=== PATIENT | female | born 2000 | race Caucasian/White ===

== ENCOUNTER 2018-06-24 12:48 | Outpatient (CLI) | payer OTHER ==
[~2018-06-24] VITALS: Ht 152.4 cm; Wt 61.7 kg
[2018-06-24] MEDS ORDERED: PNV11TAB PO (14:00)
[2018-06-24 14:01] VITALS: BP 124/71; PULSE 94; RESP 19; Ht 152.4 cm; Wt 61.7 kg
--- NOTE | 2018-06-24 17:58 | TRIAGE ---
OB Triage Datetime Report Generated by CPN: 06/24/2018 17:58 Datetime: 06/24/2018 16:00 Labor Evaluation Frequency: 0 Monitor Mode: External Pattern: Normal: <= 5 Contractions in 10 Minutes Resting Tone [place]: Relaxed Heart Rate FHR Baseline Rate: 135 Monitor Mode: External US FHR Baseline Changes: No Baseline Change Variability: Moderate 6-25 bpm Accelerations: 15X15 Decelerations: None Category: Category I Datetime: 06/24/2018 14:12 Assessment Type: Triage Maternal Assessment Level of Consciousness: Fully Conscious DTR's/Clonus: DTRs 2+; No Clonus Headache: Denies Blurred Vision: No Respiratory Effort: Unlabored; Regular Rhythm; Equal Expansion Breath Sounds, Left: Clear and Equal Breath Sounds, Right: Clear and Equal Nausea/Vomiting: Denies RUQ Epigastric Pain: Denies Lower Extremities Edema: None Degree: None Upper Extremities Edema: None Degree: None Facial Edema: None Fall Risk Assessment History of Falling: (0) No Secondary Diagnosis: (0) No Ambulatory Aid: (0) Bedrest/Nurse Assist IV Therapy: (0) No Gait: (0) Normal/Bedrest/Immobile Mental Status: (0) Oriented to Own Ability Fall Score: 0 Fall Risk Score Definition: No Risk: No action required Datetime: 06/24/2018 14:11 Time of Arrival: 06/24/2018 12:40 EGA: 27.2 Arrived By: Ambulatory Arrived From: Home Chief Complaint: DFM Movement: Decreased Contractions: Denies/Absent Rupture of Membranes: Denies Vaginal Bleeding: None Vaginal Discharge: Denies Recent Sexual Intercouse: Denies Abdominal Trauma: Not Applicable Patient Complaints: Other Time Provider Notified: 06/24/2018 15:25 Provider Notified: DR MCCARTY Initial Plan: NST BPP AND EFW Datetime: 06/24/2018 14:10 Labor Evaluation Frequency: 0 Monitor Mode: External Pattern: Normal: <= 5 Contractions in 10 Minutes Resting Tone [place]: Relaxed Heart Rate FHR Baseline Rate: 145 Monitor Mode: External US FHR Baseline Changes: No Baseline Change Variability: Moderate 6-25 bpm Accelerations: 15X15 Decelerations: None Category: Category I
--- NOTE | 2018-06-24 19:30 | PN ---
Triage Information Date/Time June 24, 2018 Reason for visit: DFM Weeks of Gestation 27 weeks and 2 days /Para 2 para 0 Diabetes: none Hypertention: none Additional information 17-year-old G2, P0 with IUP at 27 weeks and 2 days with decreased movement. Patient denies any leaking of fluid vaginal bleeding or contractions. Objective Vital Signs Date Temp Pulse Resp B/P (MAP) Pulse Ox O2 O2 Flow FiO2 Time Delivery Rate 06/24/18 99.0 94 19 124/71 Room Air 14:01 (88) Heart Rate: 130's Heart Rate Comments Appropriate for gestational age Contractions: None Exam Appearance: Alert and oriented x4 does not appear to be in any acute distress Abdomen: Soft, gravid, fundal height consider gestational age NST: Category 1 BPP: 09/23 Results/Medications Imaging Results PROCEDURE: US OB biophysical profile. CLINICAL INDICATION: decreased movements, TECHNIQUE: Multiple sonographic images of the pelvis were obtained. The images were reviewed on a PACS workstation. COMPARISON: No prior studies are available for comparison. FINDINGS: There is a single live intrauterine gestation. Cardiac activity is present with 159 beats per minute. There is a breech presentation. The placenta is anterior. There is no evidence of placental abruption. TOBIAS = 13.5 cm. Biophysical profile: movement 2/2 tone 2/2. breathing 2/2 TOBIAS 2/2 Total 09/23 RPTAT: AA . IMPRESSION: Normal biophysical profile. . PROCEDURE: US OB. CLINICAL INDICATION: Size and dates , DFM TECHNIQUE: Multiple sonographic images of the pelvis and gravid uterus were obtained. The images were reviewed on a PACS workstation. COMPARISON: No prior studies are available for comparison. FINDINGS: Gestation: Single live intrauterine gestation. Cardiac activity: 159 beats per minute. Presentation: breech Placenta: Location: Anterior. Appearance: No previa or abruption. Measurements: BPD = 6.4 cm, 25 weeks and 6 days HC = 24.6 cm, 26 weeks and 5 days AC = 24 cm, 28 weeks and 2 days FL = 5.4 cm, 28 weeks and 3 days Gestational Age: AUA estimated gestational age: 27 weeks 2 days LMP estimated gestational age: 27 weeks 2 days AUA estimated date of delivery: 09/21/18 The EFW = 1162 g, 67.8%ile based on LMP age. RPTAT: AA IMPRESSION: Single live intrauterine gestation of 27 weeks 2 days by ultrasound criteria. .Dhaval Banerjee MD, MD Date Time Electronically viewed and signed by .Dhaval Banerjee MD, MD on 06/24/2018 14:47 .S/ CC: SABIHA MCCARTY MD [id number] Disposition: Discharge Assessment/Plan IUP at 27 weeks and 2 days Decreased movement testing reassuring DC home Follow-up with OB office in 48 hours after discharge from the hospital labor precautions kick count RON SALAZAR MD June 24, 2018 19:30
== END 2018-06-24 17:50 | disposition home or self-care (01) ==
LOC: L-D 12:48 → OBT 12:48
PROVIDERS: ATTEND Obstetrics & Gynecology
DX: O36.8120 Decreased fetal movements, second trimester, not applicable or unspecified (principal); Z3A.27 27 weeks gestation of pregnancy
CPT/HCPCS: 76815; 76818; Z7500; G0463

== ENCOUNTER 2018-08-13 13:45 | Outpatient (CLI) | payer OTHER ==
[~2018-08-13] VITALS: Ht 152.4 cm; Wt 65.3 kg
[~2018-08-13 13:45] MED LIST: PNV11TAB PO
[2018-08-13 14:34] VITALS: BP 115/64; PULSE 78; RESP 18; Ht 152.4 cm; Wt 65.3 kg
--- NOTE | 2018-08-13 15:27 | PN ---
Triage Information Date/Time 08/13/18 Reason for visit: Oligohydramnios Weeks of Gestation 34w3d /Para Diabetes: none Hypertention: none Objective Vital Signs Date Temp Pulse Resp B/P (MAP) Pulse Ox O2 O2 Flow FiO2 Time Delivery Rate 08/13/18 98.5 78 18 115/64 14:34 (81) Heart Rate: 140's Heart Rate Comments CAT I Contractions: None Results/Medications Imaging Results BPP 09/23 TOBIAS 10.8 Disposition: Discharge Assessment/Plan A IUP 34w3d oligohydramnios ( normal amniotic fluid) P discharge home , f/u with her OB DARIANA CHRISTIANSON MD Aug 13, 2018 15:27
--- NOTE | 2018-08-13 16:02 | TRIAGE ---
OB Triage Datetime Report Generated by CPN: 08/13/2018 16:02 Datetime: 08/13/2018 15:09 Stage of : OB Triage Datetime: 08/13/2018 14:30 Stage of : OB Triage Assessment Type: Triage Maternal Assessment Level of Consciousness: Keenly Alert, Responsive DTR's/Clonus: DTRs 2+; No Clonus Headache: Denies Blurred Vision: No Respiratory Effort: Unlabored; Regular Rhythm; Equal Expansion Breath Sounds, Left: Clear and Equal Breath Sounds, Right: Clear and Equal Nausea/Vomiting: Denies RUQ Epigastric Pain: Denies Facial Edema: None Temperature Route: Axillary Fall Risk Assessment History of Falling: (0) No Secondary Diagnosis: (0) No Ambulatory Aid: (0) Bedrest/Nurse Assist IV Therapy: (0) No Gait: (0) Normal/Bedrest/Immobile Mental Status: (0) Oriented to Own Ability Fall Score: 0 Fall Risk Score Definition: No Risk: No action required Labor Evaluation Frequency: 0 Monitor Mode: External Pattern: Normal: <= 5 Contractions in 10 Minutes Resting Tone [place]: Relaxed Heart Rate FHR Baseline Rate: 155 Monitor Mode: External US Variability: Moderate 6-25 bpm Accelerations: 10X10 Decelerations: None Category: Category I Pain Assessment Pain Scale: 0 Pain Presence: None/Denies Pain Type: N/A Pain Goal: 3 Pain Relief Measures: Comfort Measures Datetime: 08/13/2018 14:29 Time of Arrival: 08/13/2018 13:40 EGA: 34.3 Arrived By: Ambulatory Arrived From: Dr. Wooten Chief Complaint: referred from clinic for low chantel, denies leaking, bleeding or uc's Movement: Present Contractions: Denies/Absent Rupture of Membranes: Denies Vaginal Bleeding: None Vaginal Discharge: Denies Recent Sexual Intercouse: Denies Abdominal Trauma: Not Applicable Patient Complaints: None Time Provider Notified: 08/13/2018 15:09 Provider Notified: del[place] Initial Plan: monitor, bpp Datetime: 06/24/2018 14:12 Fall Score: 0 Fall Risk Score Definition: No Risk: No action required Datetime: 06/24/2018 14:11 EGA: 27.2
== END 2018-08-13 15:20 | disposition home or self-care (01) ==
LOC: OBT 13:45 → L-D 13:47 → OBT 15:20
PROVIDERS: ATTEND Obstetrics & Gynecology
DX: O41.03X0 Oligohydramnios, third trimester, not applicable or unspecified (principal); Z3A.34 34 weeks gestation of pregnancy
CPT/HCPCS: 76818; Z7500; G0463

== ENCOUNTER 2018-08-17 12:02 | Outpatient (CLI) | payer OTHER ==
[~2018-08-17] VITALS: Ht 152.4 cm; Wt 65.5 kg
[2018-08-17 12:22] VITALS: Ht 152.4 cm; Wt 65.5 kg
[2018-08-17 12:23] VITALS: BP 104/59; PULSE 84; RESP 18
--- NOTE | 2018-08-17 15:10 | PN ---
Triage Information Date/Time Reason for visit: Repeat TOBIAS,Hx of Low TOBIAS Weeks of Gestation 34+ /Para n/a Diabetes: none Hypertention: none Objective Vital Signs Date Temp Pulse Resp B/P (MAP) Pulse Ox O2 O2 Flow FiO2 Time Delivery Rate 08/17/18 98.2 84 18 104/59 12:23 (74) Heart Rate: 140's Contractions: None Disposition: Discharge Assessment/Plan BPP 11/25 Questions answered Follow up with provider Precautions discussed DA KEENAN M.D. Aug 17, 2018 15:10
--- NOTE | 2018-08-17 15:54 | TRIAGE ---
OB Triage Datetime Report Generated by CPN: 08/17/2018 15:54 Datetime: 08/17/2018 15:02 Stage of : OB Triage Datetime: 08/17/2018 14:25 Labor Evaluation Frequency: 0 Monitor Mode: External Pattern: Normal: <= 5 Contractions in 10 Minutes Resting Tone [place]: Relaxed Heart Rate FHR Baseline Rate: 125 Monitor Mode: External US Variability: Moderate 6-25 bpm Accelerations: 10X10 Decelerations: None Category: Category I Pain Assessment Pain Scale: 0 Pain Presence: None/Denies Pain Type: N/A Pain Goal: 3 Pain Relief Measures: Comfort Measures Datetime: 08/17/2018 13:31 Labor Evaluation Frequency: 0 Monitor Mode: External Pattern: Normal: <= 5 Contractions in 10 Minutes Resting Tone [place]: Relaxed Heart Rate FHR Baseline Rate: 125 Monitor Mode: External US Variability: Moderate 6-25 bpm Accelerations: 10X10 Decelerations: None Category: Category I Pain Assessment Pain Scale: 0 Pain Presence: None/Denies Pain Type: N/A Pain Goal: 3 Pain Relief Measures: Comfort Measures Datetime: 08/17/2018 12:28 Stage of : OB Triage Assessment Type: Triage Maternal Assessment Level of Consciousness: Keenly Alert, Responsive DTR's/Clonus: DTRs 2+; No Clonus Headache: Denies Blurred Vision: No Respiratory Effort: Unlabored; Regular Rhythm; Equal Expansion Breath Sounds, Left: Clear and Equal Breath Sounds, Right: Clear and Equal Nausea/Vomiting: Denies RUQ Epigastric Pain: Denies Facial Edema: None Temperature Route: Oral Fall Risk Assessment History of Falling: (0) No Secondary Diagnosis: (0) No Ambulatory Aid: (0) Bedrest/Nurse Assist IV Therapy: (0) No Gait: (0) Normal/Bedrest/Immobile Mental Status: (0) Oriented to Own Ability Fall Score: 0 Fall Risk Score Definition: No Risk: No action required Pain Assessment Pain Scale: 0 Pain Presence: None/Denies Pain Type: N/A Pain Goal: 0 Datetime: 08/17/2018 12:26 Time of Arrival: 08/17/2018 11:56 EGA: 35.0 Arrived By: Ambulatory Chief Complaint: NST follow-up for low TOBIAS Movement: Present Contractions: Denies/Absent Rupture of Membranes: Denies Vaginal Bleeding: None Vaginal Discharge: Denies Recent Sexual Intercouse: Denies Abdominal Trauma: Not Applicable Patient Complaints: None Time Provider Notified: 08/17/2018 15:02 Provider Notified: GHAYOORI Initial Plan: monitor, BPP Datetime: 08/13/2018 14:30 Fall Score: 0 Fall Risk Score Definition: No Risk: No action required Datetime: 08/13/2018 14:29 EGA: 34.3 Datetime: 06/24/2018 14:12 Fall Score: 0 Fall Risk Score Definition: No Risk: No action required Datetime: 06/24/2018 14:11 EGA: 27.2
== END 2018-08-17 15:12 | disposition home or self-care (01) ==
LOC: OBT 12:02 → L-D 12:06 → OBT 15:12
PROVIDERS: ATTEND Obstetrics & Gynecology
DX: O41.93X0 Disorder of amniotic fluid and membranes, unspecified, third trimester, not applicable or unspecified (principal); Z3A.34 34 weeks gestation of pregnancy
CPT/HCPCS: 76818; Z7500; G0463

== ENCOUNTER 2018-08-24 10:31 | Outpatient (CLI) | payer OTHER ==
[~2018-08-24] VITALS: Ht 149.9 cm; Wt 66.8 kg
[2018-08-24 10:42] VITALS: Ht 149.9 cm; Wt 66.8 kg
--- NOTE | 2018-08-24 12:47 | PN ---
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 Aug 24, 2018 12:47
--- NOTE | 2018-08-24 13:51 | TRIAGE ---
OB Triage Datetime Report Generated by CPN: 08/24/2018 13:51 Datetime: 08/24/2018 12:36 Stage of : OB Triage Maternal Assessment Level of Consciousness: Keenly Alert, Responsive DTR's/Clonus: DTRs 1+ Headache: Denies Breath Sounds, Left: Clear and Equal Breath Sounds, Right: Clear and Equal Nausea/Vomiting: Denies RUQ Epigastric Pain: Denies Labor Evaluation Frequency: NONE Monitor Mode: External Resting Tone [place]: Relaxed Heart Rate FHR Baseline Rate: 120 Monitor Mode: External US Variability: Moderate 6-25 bpm Accelerations: 15X15 Decelerations: None Category: Category I Pain Assessment Pain Scale: 0 Pain Presence: None/Denies Pain Type: N/A Pain Goal: 3 Vaginal Exam Membrane Status: Intact Datetime: 08/24/2018 12:00 Stage of : OB Triage Maternal Assessment Level of Consciousness: Keenly Alert, Responsive DTR's/Clonus: DTRs 1+ Headache: Denies Breath Sounds, Left: Clear and Equal Breath Sounds, Right: Clear and Equal Nausea/Vomiting: Denies RUQ Epigastric Pain: Denies Labor Evaluation Frequency: NONE Monitor Mode: External Resting Tone [place]: Relaxed Heart Rate FHR Baseline Rate: 120 Monitor Mode: External US Variability: Moderate 6-25 bpm Accelerations: 15X15 Decelerations: None Category: Category I Pain Assessment Pain Scale: 0 Pain Presence: None/Denies Pain Type: N/A Pain Goal: 3 Vaginal Exam Membrane Status: Intact Datetime: 08/24/2018 11:02 Maternal Assessment Level of Consciousness: Keenly Alert, Responsive DTR's/Clonus: DTRs 1+ Headache: Denies Blurred Vision: No Respiratory Effort: Unlabored Breath Sounds, Left: Clear and Equal Breath Sounds, Right: Clear and Equal Nausea/Vomiting: Denies RUQ Epigastric Pain: Denies Facial Edema: None Labor Evaluation Frequency: NONE Monitor Mode: External Resting Tone [place]: Relaxed Heart Rate FHR Baseline Rate: 120 Monitor Mode: External US Variability: Moderate 6-25 bpm Accelerations: 15X15 Decelerations: None Category: Category I Pain Assessment Pain Scale: 0 Pain Presence: None/Denies Pain Type: N/A Pain Goal: 3 Vaginal Exam Membrane Status: Intact Datetime: 08/24/2018 10:37 EGA: 36.4 Datetime: 08/24/2018 10:25 Time of Arrival: 08/24/2018 10:25 EGA: 36.0 Arrived By: Ambulatory Arrived From: Home Chief Complaint: PT CAME IN FOR NST AND BPP F/U FOR OLIGO Movement: Present Contractions: Denies/Absent Rupture of Membranes: Denies Vaginal Bleeding: None Vaginal Discharge: Denies Recent Sexual Intercouse: Denies Abdominal Trauma: Not Applicable Patient Complaints: Other Time Provider Notified: 08/24/2018 10:45 Provider Notified: ESHAGHIAN Initial Plan: NST AND BPP Datetime: 08/17/2018 12:28 Fall Risk Assessment Fall Score: 0 Fall Risk Score Definition: No Risk: No action required Datetime: 08/17/2018 12:26 EGA: 35.0 Datetime: 08/13/2018 14:30 Fall Risk Assessment Fall Score: 0 Fall Risk Score Definition: No Risk: No action required Datetime: 08/13/2018 14:29 EGA: 34.3 Datetime: 06/24/2018 14:12 Fall Risk Assessment Fall Score: 0 Fall Risk Score Definition: No Risk: No action required Datetime: 06/24/2018 14:11 EGA: 27.2
== END 2018-08-24 12:41 | disposition home or self-care (01) ==
LOC: OBT 10:31 → L-D 10:32 → OBT 12:41
PROVIDERS: ATTEND Obstetrics & Gynecology
DX: O62.9 Abnormality of forces of labor, unspecified (principal)
CPT/HCPCS: 76818; 84112; Z7500; G0463

== ENCOUNTER 2018-08-26 10:16 | Inpatient (IN) | payer OTHER ==
[~2018-08-26] VITALS: Ht 149.9 cm; Wt 66.7 kg
[2018-08-26 10:40] VITALS: Ht 149.9 cm; Wt 66.7 kg
[2018-08-26 10:41] VITALS: BP 110/68; PULSE 93; RESP 18
--- NOTE | 2018-08-26 14:37 | TRIAGE ---
OB Triage Datetime Report Generated by CPN: 08/26/2018 14:36 Datetime: 08/26/2018 14:25 Stage of : OB Triage Datetime: 08/26/2018 14:21 Maternal Assessment Level of Consciousness: Keenly Alert, Responsive DTR's/Clonus: DTRs 1+ Headache: Denies Blurred Vision: No Respiratory Effort: Unlabored Breath Sounds, Left: Clear and Equal Breath Sounds, Right: Clear and Equal Nausea/Vomiting: Denies RUQ Epigastric Pain: Denies Facial Edema: None Labor Evaluation Frequency: OCC Monitor Mode: External Duration (sec)2399: 40-60 Quality: Mild Pattern: Normal: <= 5 Contractions in 10 Minutes Resting Tone [place]: Relaxed Heart Rate FHR Baseline Rate: 120 Monitor Mode: External US Variability: Moderate 6-25 bpm Accelerations: 15X15 Decelerations: None Category: Category I Pain Assessment Pain Scale: 0 Pain Presence: None/Denies Pain Type: N/A Pain Goal: 3 Vaginal Exam Membrane Status: Intact Datetime: 08/26/2018 14:00 Stage of : OB Triage Maternal Assessment Level of Consciousness: Keenly Alert, Responsive DTR's/Clonus: DTRs 1+ Headache: Denies Breath Sounds, Left: Clear and Equal Breath Sounds, Right: Clear and Equal Nausea/Vomiting: Denies RUQ Epigastric Pain: Denies Labor Evaluation Frequency: OCC Monitor Mode: External Duration (sec)2399: 40-60 Quality: Mild Pattern: Normal: <= 5 Contractions in 10 Minutes Resting Tone [place]: Relaxed Heart Rate FHR Baseline Rate: 120 Monitor Mode: External US Variability: Moderate 6-25 bpm Accelerations: 15X15 Decelerations: None Category: Category I Pain Assessment Pain Scale: 0 Pain Presence: None/Denies Pain Type: N/A Pain Goal: 3 Vaginal Exam Membrane Status: Intact Datetime: 08/26/2018 11:10 Pattern: Normal: <= 5 Contractions in 10 Minutes Resting Tone [place]: Relaxed Contraction Comments: irritability Heart Rate FHR Baseline Rate: 125 Monitor Mode: External US Variability: Moderate 6-25 bpm Accelerations: 15X15 Decelerations: None Category: Category I Pain Presence: None/Denies Pain Type: N/A Datetime: 08/26/2018 10:39 Assessment Type: Triage Maternal Assessment Level of Consciousness: Keenly Alert, Responsive DTR's/Clonus: DTRs 2+; No Clonus Headache: Denies Blurred Vision: No Respiratory Effort: Unlabored; Regular Rhythm; Equal Expansion Breath Sounds, Left: Clear and Equal Breath Sounds, Right: Clear and Equal Nausea/Vomiting: Denies RUQ Epigastric Pain: Denies Lower Extremities Edema: None Degree: None Upper Extremities Edema: None Degree: None Facial Edema: None Fall Risk Assessment History of Falling: (0) No Secondary Diagnosis: (0) No Ambulatory Aid: (0) Bedrest/Nurse Assist IV Therapy: (0) No Gait: (0) Normal/Bedrest/Immobile Mental Status: (0) Oriented to Own Ability Fall Score: 0 Fall Risk Score Definition: No Risk: No action required Datetime: 08/26/2018 10:30 Time of Arrival: 08/26/2018 10:12 EGA: 36.6 Arrived By: Ambulatory Arrived From: Home Chief Complaint: Biweekly nst, bpp due to history of low chantel Movement: Present Contractions: Denies/Absent Rupture of Membranes: Denies Vaginal Bleeding: None Vaginal Discharge: Denies Recent Sexual Intercouse: Denies Abdominal Trauma: Not Applicable Patient Complaints: None Time Provider Notified: 08/26/2018 11:12 Provider Notified: eshaghian Initial Plan: nst, bpp Datetime: 08/24/2018 10:37 EGA: 36.4 Datetime: 08/24/2018 10:25 EGA: 36.0 Datetime: 08/17/2018 12:28 Fall Score: 0 Fall Risk Score Definition: No Risk: No action required Datetime: 08/17/2018 12:26 EGA: 35.0 Datetime: 08/13/2018 14:30 Fall Score: 0 Fall Risk Score Definition: No Risk: No action required Datetime: 08/13/2018 14:29 EGA: 34.3 Datetime: 06/24/2018 14:12 Fall Score: 0 Fall Risk Score Definition: No Risk: No action required Datetime: 06/24/2018 14:11 EGA: 27.2
[2018-08-26] MEDS: LACTATED RINGER'S 1,000 ML IV SCH ×2 (17:46→23:53)
[2018-08-27] MEDS: LACTATED RINGER'S 1,000 ML IV SCH (06:56)
--- NOTE | 2018-08-27 13:10 | QN ---
Documentation Comment 37+wks early labor Cx clsoed NST reassuring BPP 11/25 ROm plus test neg --->Discharged with precautions -->Questions answered -->Precautions discussed --->Follow up with provider --->NST BPP in 2 days in the hospital DA KEENAN M.D. Aug 27, 2018 13:10
--- NOTE | 2018-08-27 13:10 | DS ---
Date/Time of Note Date/Time of Note DATE: 08/27/18 TIME: 13:10 Discharge Summary Admission/Discharge Info Admit Date/Time Aug 26, 2018 at 13:00 Discharge Date/Time 08/27/2018 Discharge Diagnosis early labor Patient Condition: Good Hospital Course uneventful Home Meds Reported Medications [id number] ( 19) 1 Each Tablet, 1 TAB PO DAILY, TAB 06/24/18 Primary Care Provider Not On Staff Doctor Pending Labs Laboratory Tests Test 08/27/18 07:26 08/27/18 11:50 Lab Scanned Report [facility] [id number] Membranes Rupture NEGATIVE (NEGATIVE) DA KEENAN M.D. Aug 27, 2018 13:10
== END 2018-08-27 13:10 | disposition home or self-care (01) | DRG 833 ==
LOC: OBT 10:16 → L-D 10:17 → OBT 13:00 → L-D 14:35
PROVIDERS: ADMIT Obstetrics & Gynecology; ATTEND Obstetrics & Gynecology
PROC: 4A0HXCZ Measurement of Products of Conception, Cardiac Rate, External Approach (ICD-10-PCS; principal; 2018-08-26)
DX: O60.03 Preterm labor without delivery, third trimester (principal); Z3A.37 37 weeks gestation of pregnancy
CPT/HCPCS: 76818; 84112; G0463; J7120

== ENCOUNTER 2018-08-31 11:52 | Inpatient (IN) | payer OTHER ==
[~2018-08-31] VITALS: Ht 152.4 cm; Wt 61.0 kg
[2018-08-31 11:57] VITALS: Ht 152.4 cm; Wt 61.0 kg
--- NOTE | 2018-08-31 13:31 | HP ---
Date/Time of Note Date/Time of Note DATE: 08/31/18 TIME: 13:29 OB - History Hx of Present Free Text/Dictation @37+ wks GA with Low TOBIAS : 2 Para: 0 Care: Good Care Ultrasounds: Normal mid trimester US Obstetrical Complications: None Medical Complications: None Past Family/Social History * Past Medical, Surgical, Family and Obstetric Histories reviewed from chart. OB Admission Exam Physical Exam Abdomen: WNL Extremities: Normal Cervical Dilatation: None Effacement: 0% Station: [place]ot[place] Membranes: Intact Heart Rate: 140's Accelerations: Accelerations Present Decelerations: No Decelerations Varibility: Marked Contractions on Admission: None OB Assessment/Plan Reason for admission: observation Other Assessment: PMH Denies PSH Denies Plan: Expectant Management DA KEENAN M.D. Aug 31, 2018 13:31
--- NOTE | 2018-08-31 15:21 | TRIAGE ---
OB Triage Datetime Report Generated by CPN: 08/31/2018 15:21 Datetime: 08/31/2018 13:30 Stage of : OB Triage Maternal Assessment Level of Consciousness: Keenly Alert, Responsive DTR's/Clonus: DTRs 1+ Headache: Denies Breath Sounds, Left: Clear and Equal Breath Sounds, Right: Clear and Equal Nausea/Vomiting: Denies RUQ Epigastric Pain: Denies Monitor Mode: External Pattern: Normal: <= 5 Contractions in 10 Minutes Resting Tone Tingley: Relaxed Heart Rate FHR Baseline Rate: 115 Monitor Mode: External US Variability: Moderate 6-25 bpm Accelerations: 15X15 Decelerations: None Category: Category I Pain Assessment Pain Scale: 0 Pain Presence: None/Denies Pain Type: N/A Pain Goal: 3 Membrane Status: Intact Datetime: 08/31/2018 12:29 Maternal Assessment Level of Consciousness: Keenly Alert, Responsive DTR's/Clonus: DTRs 1+ Headache: Denies Blurred Vision: No Respiratory Effort: Unlabored Breath Sounds, Left: Clear and Equal Breath Sounds, Right: Clear and Equal Nausea/Vomiting: Denies RUQ Epigastric Pain: Denies Facial Edema: None Labor Evaluation Frequency: OCC Monitor Mode: External Duration (sec)2399: 40-50 Quality: Mild Pattern: Normal: <= 5 Contractions in 10 Minutes Resting Tone Tingley: Relaxed Heart Rate FHR Baseline Rate: 115 Monitor Mode: External US Variability: Moderate 6-25 bpm Accelerations: 15X15 Decelerations: None Category: Category I Pain Assessment Pain Scale: 0 Pain Presence: None/Denies Pain Type: N/A Pain Goal: 3 Membrane Status: Intact Datetime: 08/31/2018 11:45 Assessment Type: Triage Maternal Assessment Level of Consciousness: Keenly Alert, Responsive DTR's/Clonus: DTRs 2+; No Clonus Headache: Denies Blurred Vision: No Respiratory Effort: Unlabored; Regular Rhythm; Equal Expansion Breath Sounds, Left: Clear and Equal Breath Sounds, Right: Clear and Equal Nausea/Vomiting: Denies RUQ Epigastric Pain: Denies Lower Extremities Edema: None Degree: None Upper Extremities Edema: None Degree: None Facial Edema: None Fall Risk Assessment History of Falling: (0) No Secondary Diagnosis: (0) No Ambulatory Aid: (0) Bedrest/Nurse Assist IV Therapy: (0) No Gait: (0) Normal/Bedrest/Immobile Mental Status: (0) Oriented to Own Ability Fall Score: 0 Fall Risk Score Definition: No Risk: No action required Datetime: 08/31/2018 11:41 Time of Arrival: 08/31/2018 11:41 EGA: 37.4 Arrived By: Ambulatory Arrived From: Home Chief Complaint: PT CAME BACK FOR NST AND BPP FOR LOW TOBIAS Movement: Present Contractions: Denies/Absent Rupture of Membranes: Denies Vaginal Discharge: Denies Recent Sexual Intercouse: Denies Abdominal Trauma: Not Applicable Additional Patient Complaints: NONE Time Provider Notified: 08/31/2018 12:00 Provider Notified: [email or web address] Initial Plan: NST AND BPP Datetime: 08/27/2018 13:00 Labor Evaluation Frequency: 0 Monitor Mode: External Heart Rate FHR Baseline Rate: 130 Monitor Mode: External US FHR Baseline Changes: No Baseline Change Variability: Moderate 6-25 bpm Accelerations: 15X15 Decelerations: None Category: Category I Pain Presence: None/Denies Datetime: 08/27/2018 12:24 Labor Evaluation Frequency: 0 Monitor Mode: External Heart Rate FHR Baseline Rate: 130 Monitor Mode: External US FHR Baseline Changes: No Baseline Change Variability: Moderate 6-25 bpm Accelerations: 15X15 Decelerations: None Category: Category I Pain Presence: None/Denies Datetime: 08/27/2018 11:31 Vaginal Exam Dilatation (cms): 0.0 Datetime: 08/27/2018 11:24 Labor Evaluation Frequency: occ Monitor Mode: External Quality: Mild Pattern: Normal: <= 5 Contractions in 10 Minutes Resting Tone Tingley: Relaxed Heart Rate FHR Baseline Rate: 130 Monitor Mode: External US FHR Baseline Changes: No Baseline Change Variability: Moderate 6-25 bpm Accelerations: 15X15 Decelerations: None Category: Category I Pain Presence: None/Denies Datetime: 08/27/2018 10:32 Labor Evaluation Frequency: occ Monitor Mode: External Quality: Mild Pattern: Normal: <= 5 Contractions in 10 Minutes Resting Tone Tingley: Relaxed Heart Rate FHR Baseline Rate: 120 Monitor Mode: External US FHR Baseline Changes: No Baseline Change Variability: Moderate 6-25 bpm Accelerations: 15X15 Decelerations: None Category: Category I Pain Presence: None/Denies Datetime: 08/27/2018 09:32 Labor Evaluation Frequency: OCC Monitor Mode: External Quality: Mild Pattern: Normal: <= 5 Contractions in 10 Minutes Resting Tone Tingley: Relaxed Heart Rate FHR Baseline Rate: 110 Monitor Mode: External US FHR Baseline Changes: No Baseline Change Variability: Moderate 6-25 bpm Accelerations: 15X15 Decelerations: None Category: Category I Pain Assessment Pain Scale: 0 Pain Presence: None/Denies Datetime: 08/27/2018 08:24 Labor Evaluation Frequency: 0 Monitor Mode: External Heart Rate FHR Baseline Rate: 120 Monitor Mode: External US FHR Baseline Changes: No Baseline Change Variability: Moderate 6-25 bpm Accelerations: 15X15 Decelerations: None Category: Category I Pain Presence: None/Denies Datetime: 08/27/2018 07:00 Stage of : Antepartum Labor Evaluation Frequency: x3+irrit Monitor Mode: External Duration (sec)2399: 40-80 Quality: Mild Resting Tone Tingley: Relaxed Heart Rate FHR Baseline Rate: 118 Monitor Mode: External US FHR Baseline Changes: No Baseline Change Variability: Moderate 6-25 bpm Accelerations: 15X15 Decelerations: None Category: Category I Datetime: 08/27/2018 06:00 Labor Evaluation Frequency: occasional Monitor Mode: External Duration (sec)2399: 50-70 Quality: Mild Resting Tone Tingley: Relaxed Heart Rate FHR Baseline Rate: 118 Monitor Mode: External US FHR Baseline Changes: No Baseline Change Variability: Moderate 6-25 bpm Accelerations: 15X15 Decelerations: None Category: Category I Datetime: 08/27/2018 05:24 Stage of : Antepartum Temperature Route: Oral Pain Assessment Pain Scale: 0 Pain Presence: None/Denies Pain Type: N/A Datetime: 08/27/2018 05:00 Labor Evaluation Frequency: occasional Monitor Mode: External Duration (sec)2399: 50-70 Quality: Mild Resting Tone Tingley: Relaxed Heart Rate FHR Baseline Rate: 118 Monitor Mode: External US FHR Baseline Changes: No Baseline Change Variability: Moderate 6-25 bpm Accelerations: 15X15 Decelerations: None Category: Category I Datetime: 08/27/2018 04:00 Labor Evaluation Frequency: 0 Monitor Mode: External Resting Tone Tingley: Relaxed Heart Rate FHR Baseline Rate: 120 Monitor Mode: External US FHR Baseline Changes: No Baseline Change Variability: Moderate 6-25 bpm Accelerations: 15X15 Decelerations: None Category: Category I Datetime: 08/27/2018 03:00 Labor Evaluation Frequency: 0 Monitor Mode: External Resting Tone Tingley: Relaxed Heart Rate FHR Baseline Rate: 120 Monitor Mode: External US FHR Baseline Changes: No Baseline Change Variability: Moderate 6-25 bpm Accelerations: 15X15 Decelerations: None Category: Category I Datetime: 08/27/2018 02:00 Labor Evaluation Frequency: 0 Monitor Mode: External Resting Tone Tingley: Relaxed Heart Rate FHR Baseline Rate: 120 Monitor Mode: External US FHR Baseline Changes: No Baseline Change Variability: Moderate 6-25 bpm Accelerations: 15X15 Decelerations: None Category: Category I Datetime: 08/27/2018 01:00 Labor Evaluation Frequency: x3+irritabilities Monitor Mode: External Duration (sec)2399: 50-60 Quality: Mild Resting Tone Tingley: Relaxed Heart Rate FHR Baseline Rate: 130 Monitor Mode: External US FHR Baseline Changes: No Baseline Change Variability: Moderate 6-25 bpm Accelerations: 15X15 Decelerations: None Category: Category I Datetime: 08/27/2018 00:00 Labor Evaluation Frequency: x3+irritabilities Monitor Mode: External Duration (sec)2399: 50-60 Quality: Mild Resting Tone Tingley: Relaxed Heart Rate FHR Baseline Rate: 130 Monitor Mode: External US FHR Baseline Changes: No Baseline Change Variability: Moderate 6-25 bpm Accelerations: 15X15 Decelerations: None Category: Category I Datetime: 08/26/2018 23:00 Stage of : Antepartum Labor Evaluation Frequency: irritabilities Monitor Mode: External Duration (sec)2399: 50-60 Quality: Mild Resting Tone Tingley: Relaxed Heart Rate FHR Baseline Rate: 130 Monitor Mode: External US FHR Baseline Changes: No Baseline Change Variability: Moderate 6-25 bpm Accelerations: 15X15 Decelerations: None Category: Category I Datetime: 08/26/2018 22:00 Labor Evaluation Frequency: irritabilities Monitor Mode: External Duration (sec)2399: 40-70 Quality: Mild Resting Tone Tingley: Relaxed Heart Rate FHR Baseline Rate: 130 Monitor Mode: External US FHR Baseline Changes: No Baseline Change Variability: Moderate 6-25 bpm Accelerations: 15X15 Decelerations: None Category: Category I Datetime: 08/26/2018 21:00 Labor Evaluation Frequency: irritabilities Monitor Mode: External Duration (sec)2399: 40-70 Quality: Mild Resting Tone Tingley: Relaxed Heart Rate FHR Baseline Rate: 120 Monitor Mode: External US FHR Baseline Changes: No Baseline Change Variability: Moderate 6-25 bpm Accelerations: 15X15 Decelerations: None Category: Category I Datetime: 08/26/2018 20:16 Stage of : Antepartum Temperature Route: Oral Pain Assessment Pain Scale: 0 Pain Presence: None/Denies Pain Type: N/A Datetime: 08/26/2018 20:00 Labor Evaluation Frequency: occasional Monitor Mode: External Duration (sec)2399: 40-70 Quality: Mild Resting Tone Tingley: Relaxed Heart Rate FHR Baseline Rate: 120 Monitor Mode: External US FHR Baseline Changes: No Baseline Change Variability: Moderate 6-25 bpm Accelerations: 15X15 Decelerations: None Category: Category I Datetime: 08/26/2018 19:50 Assessment Type: Ongoing Assessment Maternal Assessment Level of Consciousness: Keenly Alert, Responsive DTR's/Clonus: DTRs 2+; No Clonus Headache: Denies Blurred Vision: No Respiratory Effort: Unlabored; Regular Rhythm; Equal Expansion Breath Sounds, Left: Clear and Equal Breath Sounds, Right: Clear and Equal Nausea/Vomiting: Denies RUQ Epigastric Pain: Denies Lower Extremities Edema: None Degree: None Upper Extremities Edema: None Degree: None Facial Edema: None Fall Risk Assessment History of Falling: (0) No Secondary Diagnosis: (0) No Ambulatory Aid: (0) Bedrest/Nurse Assist IV Therapy: (0) No Gait: (0) Normal/Bedrest/Immobile Mental Status: (0) Oriented to Own Ability Fall Score: 0 Fall Risk Score Definition: No Risk: No action required Datetime: 08/26/2018 18:45 Labor Evaluation Frequency: x1 Monitor Mode: External Duration (sec)2399: 100 Quality: Mild Resting Tone Tingley: Relaxed Heart Rate FHR Baseline Rate: 125 Monitor Mode: External US FHR Baseline Changes: No Baseline Change Variability: Moderate 6-25 bpm Accelerations: 15X15 Decelerations: None Category: Category I Datetime: 08/26/2018 17:47 Labor Evaluation Frequency: x5 Monitor Mode: External Duration (sec)2399: 40-50 Quality: Mild Resting Tone Tingley: Relaxed Contraction Comments: uterine irritability noted. Pt denies feeling UCs Heart Rate FHR Baseline Rate: 125 Monitor Mode: External US FHR Baseline Changes: No Baseline Change Variability: Moderate 6-25 bpm Accelerations: 15X15 Decelerations: None Category: Category I Datetime: 08/26/2018 16:51 Labor Evaluation Frequency: occasional Monitor Mode: External Duration (sec)2399: 40-60 Quality: Mild Resting Tone Tingley: Relaxed Heart Rate FHR Baseline Rate: 125 Monitor Mode: External US FHR Baseline Changes: No Baseline Change Variability: Moderate 6-25 bpm Accelerations: 15X15 Decelerations: None Category: Category I Datetime: 08/26/2018 16:43 Time of Arrival: 08/26/2018 14:30 EGA: 36.6 Arrived By: Ambulatory Arrived From: Other Unit in Hospital Datetime: 08/26/2018 15:58 Labor Evaluation Frequency: x1 Monitor Mode: External Duration (sec)2399: 50 Quality: Mild Resting Tone Tingley: Relaxed Heart Rate FHR Baseline Rate: 120 Monitor Mode: External US FHR Baseline Changes: No Baseline Change Variability: Moderate 6-25 bpm Accelerations: 15X15 Decelerations: None Category: Category I Datetime: 08/26/2018 15:00 Assessment Type: Admission Assessment Vaginal Bleeding: None Maternal Assessment Level of Consciousness: Keenly Alert, Responsive DTR's/Clonus: DTRs 2+; No Clonus Headache: Denies Blurred Vision: No Respiratory Effort: Unlabored; Regular Rhythm; Equal Expansion Breath Sounds, Left: Clear and Equal Breath Sounds, Right: Clear and Equal Nausea/Vomiting: Denies RUQ Epigastric Pain: Denies Lower Extremities Edema: None Degree: None Upper Extremities Edema: None Degree: None Facial Edema: None Fall Risk Assessment History of Falling: (0) No Secondary Diagnosis: (0) No Ambulatory Aid: (0) Bedrest/Nurse Assist IV Therapy: (0) No Gait: (0) Normal/Bedrest/Immobile Mental Status: (0) Oriented to Own Ability Fall Score: 0 Fall Risk Score Definition: No Risk: No action required Labor Evaluation Frequency: x4 Duration (sec)2399: 50-60 Quality: Mild Resting Tone Tingley: Relaxed Heart Rate FHR Baseline Rate: 120 Variability: Moderate 6-25 bpm Accelerations: 15X15 Decelerations: None Category: Category I Pain Assessment Pain Scale: 0 Pain Presence: None/Denies Pain Type: N/A Membrane Status: Intact Datetime: 08/26/2018 10:39 Fall Score: 0 Fall Risk Score Definition: No Risk: No action required Datetime: 08/26/2018 10:30 EGA: 36.6 Datetime: 08/24/2018 10:37 EGA: 36.4 Datetime: 08/24/2018 10:25 EGA: 36.0 Datetime: 08/17/2018 12:28 Fall Score: 0 Fall Risk Score Definition: No Risk: No action required Datetime: 08/17/2018 12:26 EGA: 35.0 Datetime: 08/13/2018 14:30 Fall Score: 0 Fall Risk Score Definition: No Risk: No action required Datetime: 08/13/2018 14:29 EGA: 34.3 Datetime: 06/24/2018 14:12 Fall Score: 0 Fall Risk Score Definition: No Risk: No action required Datetime: 06/24/2018 14:11 EGA: 27.2
[2018-08-31] MEDS: LACTATED RINGER'S 1,000 ML IV SCH ×2 (16:38→19:49)
[2018-09-01] MEDS ORDERED: DIPHENHYDRAMINE 50 MG INJ ONE (01:25)
[2018-09-01] MEDS ORDERED: DIPHENHYDRAMINE 50 MG INJ IV ONE (01:30)
[2018-09-01] MEDS: LACTATED RINGER'S 1,000 ML IV SCH (05:03)
[2018-09-01] MEDS ORDERED: FERROUS SULFATE (EC) 325 MG TAB PO SCH (09:00)
[2018-09-01] MEDS ORDERED: PRENATAL VITAMIN PO SCH (09:00)
--- NOTE | 2018-09-01 15:24 | PN ---
Date/Time of Note Date/Time of Note DATE: 09/01/18 TIME: 15:20 OB Subjective Subjective Subjective Patient seen and examined. She states good movement. She denies nausea, vomiting, shortness of breath, chest pain, abdominal pain between contractions, headache, visual changes, vaginal bleeding or LOF. OB Objective Objective Objective General: Patient appears well, alert and oriented, NAD, appropriate mood and affect ABD: gravid, soft, non-tender. Back: No CVA tenderness (B/L) LE: Mild edema. No clubbing, cyanosis, edema, thigh or calf tenderness bilaterally FHT: 120 bpm , moderate variability with acceleration, no deceleration-category I Contractions: None OB Assessment/Plan Other plan: 18 years old 2 para 1-0-0-1 with single intrauterine at 37 weeks and 4 days with borderline amniotic fluid was admitted for IV hydration ordered by choice she was asked to evaluate the admission - FHR: Reassuring. No sign of metabolic acidosis- Category I - Contractions: None. - US performed, TOBIAS: 6.9 - Symptoms and sign of labor, preeclampsia, kick count discussed with patient, she voiced understanding. All of her questions answered. - Patient was discharged home in stable condition with the appropriate discharge instructions provided. I would like patient to have close follow-up with her primary physician and come back in 2 days for repeat TOBIAS and NST. KARINA MORRIS Sep 01, 2018 15:24
--- NOTE | 2018-09-01 15:26 | DS ---
Date/Time of Note Date/Time of Note DATE: 09/01/18 TIME: 15:24 Obstetrical Discharge Record Final Diagnosis Final Diagnosis: Term not delivered Other Final Diagnosis 18 years old 2 para 1-0-0-1 with single intrauterine at 37 weeks and 4 days with borderline amniotic fluid was admitted for IV hydration. She received IV fluids. Repeat ultrasound with TOBIAS of 6.9. - FHR: Reassuring. No sign of metabolic acidosis- Category I - Contractions: None. - Symptoms and sign of labor, preeclampsia, kick count discussed with patient, she voiced understanding. All of her questions answered. - Patient was discharged home in stable condition with the appropriate discharge instructions provided. I would like patient to have close follow-up with her primary physician and come back in 2 days for repeat TOBIAS and NST. Condition on Discharge Physical Assessment Voiding: Yes Bowel Movement: Yes Breast: Soft, non-tender Calf Tenderness: No Patient Condition: Stable KARINA MORRIS Sep 01, 2018 15:26
== END 2018-09-01 15:17 | disposition home or self-care (01) | DRG 833 ==
LOC: OBT 11:52 → L-D 11:53 → OBT 13:25 → L-D 14:01
PROVIDERS: ADMIT Obstetrics & Gynecology; ATTEND Obstetrics & Gynecology
DX: O41.03X0 Oligohydramnios, third trimester, not applicable or unspecified (principal); Z3A.37 37 weeks gestation of pregnancy
CPT/HCPCS: 76818; G0463; J1200; J7120

== ENCOUNTER 2018-09-10 16:27 | Inpatient (IN) | payer OTHER ==
[~2018-09-10] VITALS: Ht 152.4 cm; Wt 67.5 kg
[~2018-09-10 16:27] MED LIST changes: +CALC600T24 PO; +FOLI-49 PO
[2018-09-10] MEDS ORDERED: LACTATED RINGER'S 1,000 ML IV PRN (20:45)
[2018-09-10] MEDS ORDERED: MISOPROSTOL 50 MCG CAPSULE PO SCH (21:00)
[2018-09-10] MEDS ORDERED: OXYTOCIN 30 UNITS/LR 500 ML IV SCH ×2 (21:00)
[2018-09-10] MEDS ORDERED: METHYLERGONOVINE 0.2 MG INJ IM PRN (21:00)
[2018-09-10] MEDS ORDERED: LIDOCAINE 1% (MPF) 30 ML INJ INJ PRN (21:00)
[2018-09-10] MEDS ORDERED: MINERAL OIL LIGHT 10 ML VIAL TOP PRN (21:00)
[2018-09-10] MEDS ORDERED: MISOPROSTOL 200 MCG TAB PR PRN (21:00)
[2018-09-10] MEDS ORDERED: OXYTOCIN 30 UNITS/LR 500 ML IV PRN (21:00)
[2018-09-10] MEDS ORDERED: BUTORPHANOL 2 MG INJ IV PRN (21:00)
[2018-09-10] MEDS ORDERED: IBUPROFEN 600 MG TAB PO PRN (21:00)
[2018-09-10] MEDS ORDERED: CARBOPROST 250 MCG INJ IM PRN (21:00)
[2018-09-10] MEDS: LACTATED RINGER'S 1,000 ML IV SCH (22:06)
--- NOTE | 2018-09-11 00:09 | PREOPHP ---
DATE OF ADMISSION: 09/10/2018 HISTORY OF PRESENT ILLNESS: Ms. Nimo Jose is a 18-year-old 2 para 0, EDC 09/21/2018 intrauterine at 38+ weeks gestational age, with severe itching on her palms of her hands an d soles of her feet last night. She reports good movement. She is currently [address] explaining the history and evaluation with Dr. Ayala, agrees for delivery secondary to suspected cholestasis of . Her care took place at [facility]. PAST MEDICAL HISTORY: None. MEDICATIONS: vitamins. PAST SURGICAL HISTORY: None. OBSTETRICAL HISTORY: x1 missed AB. GYNECOLOGIC HISTORY: 10, regular, 3 to 4 days. Denies any sexually transmitted infections. Sexuall y active with 1 partner. SOCIAL HISTORY: Denies any smoking, drugs or alcohol. FAMILY HISTORY: None. REVIEW OF SYSTEMS: All within normal except history of present illness. PHYSICAL EXAMINATION: HEENT: Within normal. LUNGS: CTA bilateral. CARDIOVASCULAR: S1, S2, regular rhythm. ABDOMEN: Gravid, nontender. Negative CVA bilateral. EXTREMITIES: Negative edema. No calf tenderness. PELVIC: Vaginal exam 2, 50, -3. heart tracing category 1. Tocometer no contractions. IMPRESSION: Intrauterine at 38+ weeks gestational age with suspected cholestasis of pregna ncy. PLAN: Admit patient for induction. The risks, benefits, and alternatives explained. All questions were answered. Dictated By: SABIHA SCHWARTZ/BRENT Conf#: [id number] DID#: [id number]
--- NOTE | 2018-09-11 01:20 | TRIAGE ---
OB Triage Datetime Report Generated by CPN: 09/11/2018 01:20 Datetime: 09/11/2018 00:43 Maternal Assessment Level of Consciousness: Keenly Alert, Responsive Respiratory Effort: Unlabored; Regular Rhythm; Equal Expansion Monitor Mode: External US Pain Assessment Pain Scale: 4 Pain Presence: Intermittent Pain Type: Cramping Pain Location: Abdomen Pain Goal: 0 Pain Relief Measures: Comfort Measures Datetime: 09/11/2018 00:00 Labor Evaluation Frequency: 2-5 Monitor Mode: External Duration (sec)2399: 60-90 Pattern: Normal: <= 5 Contractions in 10 Minutes Heart Rate FHR Baseline Rate: 135 Monitor Mode: External US Variability: Moderate 6-25 bpm Accelerations: 15X15 Decelerations: None Datetime: 09/10/2018 23:00 Monitor Mode: External Pattern: Normal: <= 5 Contractions in 10 Minutes Heart Rate FHR Baseline Rate: 135 Monitor Mode: External US Variability: Moderate 6-25 bpm Accelerations: 15X15 Decelerations: None Datetime: 09/10/2018 22:00 Monitor Mode: External Pattern: Normal: <= 5 Contractions in 10 Minutes Heart Rate FHR Baseline Rate: 130 Monitor Mode: External US Variability: Moderate 6-25 bpm Accelerations: 15X15 Decelerations: None Category: Category I Datetime: 09/10/2018 21:41 Assessment Type: Admission Assessment Vaginal Bleeding: None DTR's/Clonus: DTRs 2+; No Clonus Headache: Denies Blurred Vision: No Respiratory Effort: Unlabored; Regular Rhythm; Equal Expansion Breath Sounds, Left: Clear and Equal Breath Sounds, Right: Clear and Equal Nausea/Vomiting: Denies RUQ Epigastric Pain: Denies Lower Extremities Edema: None Upper Extremities Edema: None Degree: None Facial Edema: None Fall Risk Assessment History of Falling: (0) No Secondary Diagnosis: (0) No Ambulatory Aid: (0) Bedrest/Nurse Assist IV Therapy: (0) No Gait: (0) Normal/Bedrest/Immobile Mental Status: (0) Oriented to Own Ability Fall Score: 0 Fall Risk Score Definition: No Risk: No action required Pain Assessment Pain Scale: 0 Pain Presence: None/Denies Membrane Status: Intact Datetime: 09/10/2018 21:30 Time of Arrival: 09/10/2018 21:00 EGA: 38.3 Arrived By: Ambulatory Arrived From: Other Unit in Hospital Datetime: 09/10/2018 20:36 Labor Evaluation Frequency: Irregular Monitor Mode: External Resting Tone [place]: Relaxed Heart Rate FHR Baseline Rate: 125 Monitor Mode: External US Variability: Moderate 6-25 bpm Accelerations: 15X15 Decelerations: None Category: Category I Vaginal Exam Dilatation (cms): 2.0 Effacement (%): 50 Station: -3 Exam By: Dr. Menon Vaginal Bleeding: None Cervix, Consistency: Soft Cervix, Position: Posterior Presentation 'A': Cephalic Datetime: 09/10/2018 20:00 Labor Evaluation Frequency: Irregular Monitor Mode: External Resting Tone [place]: Relaxed Heart Rate FHR Baseline Rate: 130 Monitor Mode: External US Variability: Moderate 6-25 bpm Accelerations: 15X15 Decelerations: None Category: Category I Datetime: 09/10/2018 19:00 Labor Evaluation Frequency: 6-8 Monitor Mode: External Duration (sec)2399: 50-90 Quality: Mild Pattern: Normal: <= 5 Contractions in 10 Minutes Resting Tone [place]: Relaxed Contraction Comments: Pt denies feeling any pain or pressure with UC Heart Rate FHR Baseline Rate: 135 Monitor Mode: External US FHR Baseline Changes: No Baseline Change Variability: Moderate 6-25 bpm Accelerations: 15X15 Decelerations: None Category: Category I Pain Presence: None/Denies Datetime: 09/10/2018 18:00 Labor Evaluation Frequency: 2-6 Monitor Mode: External Duration (sec)2399: 50-80 Quality: Mild Pattern: Normal: <= 5 Contractions in 10 Minutes Resting Tone [place]: Relaxed Contraction Comments: Pt denies feeling any pain or pressure with UC Heart Rate FHR Baseline Rate: 130 Monitor Mode: External US FHR Baseline Changes: No Baseline Change Variability: Moderate 6-25 bpm Accelerations: 15X15 Decelerations: None Category: Category I Pain Presence: None/Denies Datetime: 09/10/2018 17:00 Labor Evaluation Frequency: 5 Monitor Mode: External Duration (sec)2399: 40-60 Quality: Moderate Pattern: Normal: <= 5 Contractions in 10 Minutes Resting Tone [place]: Relaxed Contraction Comments: Pt denies feeling any pain or pressure with UC Heart Rate FHR Baseline Rate: 125 Monitor Mode: External US FHR Baseline Changes: No Baseline Change Variability: Moderate 6-25 bpm Accelerations: 15X15 Decelerations: None Category: Category I Pain Presence: None/Denies Datetime: 09/10/2018 16:40 Time of Arrival: 09/10/2018 16:20 EGA: 38.3 Arrived By: Ambulatory Chief Complaint: Sent from [facility] for itching Movement: Present Contractions: Denies/Absent Rupture of Membranes: Denies Vaginal Bleeding: None Vaginal Discharge: Denies Recent Sexual Intercouse: Denies Abdominal Trauma: Not Applicable Patient Complaints: Other Time Provider Notified: 09/10/2018 20:20 Provider Notified: Dr. Menon Initial Plan: [facility] Datetime: 09/10/2018 16:29 Stage of : OB Triage Datetime: 09/01/2018 14:00 Stage of : Antepartum Maternal Assessment Level of Consciousness: Keenly Alert, Responsive Labor Evaluation Frequency: 0 Monitor Mode: External Resting Tone [place]: Relaxed Heart Rate FHR Baseline Rate: 125 Monitor Mode: External US Variability: Moderate 6-25 bpm Accelerations: 15X15 Decelerations: None Category: Category I Pain Assessment Pain Scale: 0 Pain Goal: 3 Membrane Status: Intact Vaginal Bleeding: None Datetime: 09/01/2018 13:00 Stage of : Antepartum Maternal Assessment Level of Consciousness: Keenly Alert, Responsive Labor Evaluation Frequency: 3UC/HR Monitor Mode: External Duration (sec)2399: 50-70 Quality: Mild Resting Tone [place]: Relaxed Heart Rate FHR Baseline Rate: 125 Monitor Mode: External US Variability: Moderate 6-25 bpm Accelerations: 15X15 Decelerations: None Category: Category I Pain Assessment Pain Scale: 0 Pain Goal: 3 Membrane Status: Intact Vaginal Bleeding: None Datetime: 09/01/2018 12:09 Stage of : Antepartum Temperature Route: Oral Datetime: 09/01/2018 12:00 Stage of : Antepartum Maternal Assessment Level of Consciousness: Keenly Alert, Responsive Labor Evaluation Frequency: 0 Monitor Mode: External Resting Tone [place]: Relaxed Heart Rate FHR Baseline Rate: 135 Monitor Mode: External US Variability: Moderate 6-25 bpm Accelerations: 15X15 Decelerations: None Category: Category I Pain Assessment Pain Scale: 0 Pain Goal: 3 Membrane Status: Intact Vaginal Bleeding: None Datetime: 09/01/2018 11:00 Stage of : Antepartum Maternal Assessment Level of Consciousness: Keenly Alert, Responsive Labor Evaluation Frequency: 0 Monitor Mode: External Resting Tone [place]: Relaxed Monitor Mode: External US Pain Assessment Pain Scale: 0 Pain Goal: 3 Membrane Status: Intact Vaginal Bleeding: None Datetime: 09/01/2018 10:00 Stage of : Antepartum Maternal Assessment Level of Consciousness: Keenly Alert, Responsive Labor Evaluation Frequency: 1UC/HR Monitor Mode: External Duration (sec)2399: 90 Quality: Mild Resting Tone [place]: Relaxed Heart Rate FHR Baseline Rate: 115 Monitor Mode: External US Variability: Moderate 6-25 bpm Accelerations: 15X15 Decelerations: None Category: Category I Pain Assessment Pain Scale: 0 Pain Goal: 3 Membrane Status: Intact Vaginal Bleeding: None Datetime: 09/01/2018 09:05 Stage of : Antepartum Temperature Route: Oral Datetime: 09/01/2018 09:00 Stage of : Antepartum Maternal Assessment Level of Consciousness: Keenly Alert, Responsive Labor Evaluation Frequency: 0 Monitor Mode: External Resting Tone [place]: Relaxed Heart Rate FHR Baseline Rate: 115 Monitor Mode: External US Variability: Moderate 6-25 bpm Accelerations: 15X15 Decelerations: None Category: Category I Pain Assessment Pain Scale: 0 Pain Goal: 3 Membrane Status: Intact Vaginal Bleeding: None Datetime: 09/01/2018 08:00 Stage of : Antepartum Assessment Type: Ongoing Assessment Maternal Assessment Level of Consciousness: Keenly Alert, Responsive DTR's/Clonus: DTRs 2+; No Clonus Headache: Denies Blurred Vision: No Respiratory Effort: Unlabored; Regular Rhythm; Equal Expansion Breath Sounds, Left: Clear and Equal Breath Sounds, Right: Clear and Equal Nausea/Vomiting: Denies RUQ Epigastric Pain: Denies Lower Extremities Edema: None Degree: None Upper Extremities Edema: None Degree: None Facial Edema: None Fall Risk Assessment History of Falling: (0) No Secondary Diagnosis: (0) No Ambulatory Aid: (0) Bedrest/Nurse Assist IV Therapy: (20) Yes Gait: (0) Normal/Bedrest/Immobile Mental Status: (0) Oriented to Own Ability Fall Score: 20 Fall Risk Score Definition: No Risk: No action required Labor Evaluation Frequency: 0 Monitor Mode: External Resting Tone [place]: Relaxed Heart Rate FHR Baseline Rate: 125 Monitor Mode: External US Variability: Moderate 6-25 bpm Accelerations: 15X15 Decelerations: None Category: Category I Pain Assessment Pain Scale: 0 Pain Goal: 3 Membrane Status: Intact Vaginal Bleeding: None Datetime: 09/01/2018 06:45 Stage of : Antepartum Labor Evaluation Frequency: 0 Monitor Mode: External Resting Tone [place]: Relaxed Heart Rate FHR Baseline Rate: 120 Monitor Mode: External US FHR Baseline Changes: No Baseline Change Variability: Moderate 6-25 bpm Accelerations: 15X15 Decelerations: None Category: Category I Datetime: 09/01/2018 06:00 Stage of : Antepartum Labor Evaluation Frequency: 0 Monitor Mode: External Resting Tone [place]: Relaxed Heart Rate FHR Baseline Rate: 120 Monitor Mode: External US FHR Baseline Changes: No Baseline Change Variability: Moderate 6-25 bpm Accelerations: 15X15 Decelerations: None Category: Category I Datetime: 09/01/2018 05:00 Stage of : Antepartum Labor Evaluation Frequency: 0 Monitor Mode: External Resting Tone [place]: Relaxed Heart Rate FHR Baseline Rate: 120 Monitor Mode: External US FHR Baseline Changes: No Baseline Change Variability: Moderate 6-25 bpm Accelerations: 15X15 Decelerations: None Category: Category I Datetime: 09/01/2018 04:00 Stage of : Antepartum Labor Evaluation Frequency: 0 Monitor Mode: External Resting Tone [place]: Relaxed Heart Rate FHR Baseline Rate: 120 Monitor Mode: External US FHR Baseline Changes: No Baseline Change Variability: Moderate 6-25 bpm Accelerations: 15X15 Decelerations: None Category: Category I Datetime: 09/01/2018 03:00 Stage of : Antepartum Labor Evaluation Frequency: 0 Monitor Mode: External Resting Tone [place]: Relaxed Heart Rate FHR Baseline Rate: 120 Monitor Mode: External US FHR Baseline Changes: No Baseline Change Variability: Moderate 6-25 bpm Accelerations: 15X15 Decelerations: None Category: Category I Datetime: 09/01/2018 01:49 Stage of : Antepartum Labor Evaluation Frequency: 0 Monitor Mode: External Resting Tone [place]: Relaxed Heart Rate FHR Baseline Rate: 120 Monitor Mode: External US FHR Baseline Changes: No Baseline Change Variability: Moderate 6-25 bpm Accelerations: 15X15 Decelerations: None Category: Category I Datetime: 09/01/2018 00:46 Stage of : Antepartum Labor Evaluation Frequency: 0 Monitor Mode: External Resting Tone [place]: Relaxed Heart Rate FHR Baseline Rate: 120 Monitor Mode: External US FHR Baseline Changes: No Baseline Change Variability: Moderate 6-25 bpm Accelerations: 15X15 Decelerations: None Datetime: 09/01/2018 00:00 Stage of : Antepartum Maternal Assessment Level of Consciousness: Keenly Alert, Responsive DTR's/Clonus: DTRs 2+; No Clonus Headache: Denies Breath Sounds, Left: Clear and Equal Breath Sounds, Right: Clear and Equal Nausea/Vomiting: Denies RUQ Epigastric Pain: Denies Datetime: 08/31/2018 23:00 Assessment Type: Ongoing Assessment Maternal Assessment Level of Consciousness: Keenly Alert, Responsive DTR's/Clonus: DTRs 2+; No Clonus Headache: Denies Blurred Vision: No Respiratory Effort: Unlabored; Regular Rhythm; Equal Expansion Breath Sounds, Left: Clear and Equal Breath Sounds, Right: Clear and Equal Nausea/Vomiting: Denies RUQ Epigastric Pain: Denies Facial Edema: None Fall Risk Assessment History of Falling: (0) No Secondary Diagnosis: (0) No Ambulatory Aid: (0) Bedrest/Nurse Assist Gait: (0) Normal/Bedrest/Immobile Mental Status: (0) Oriented to Own Ability Datetime: 08/31/2018 21:46 Heart Rate FHR Baseline Rate: 120 Monitor Mode: External US FHR Baseline Changes: No Baseline Change Variability: Moderate 6-25 bpm Accelerations: 15X15 Decelerations: None Category: Category I Datetime: 08/31/2018 21:15 Labor Evaluation Frequency: 0 Monitor Mode: External Resting Tone [place]: Relaxed Heart Rate FHR Baseline Rate: 120 Monitor Mode: External US FHR Baseline Changes: No Baseline Change Variability: Moderate 6-25 bpm Accelerations: 15X15 Decelerations: None Category: Category I Datetime: 08/31/2018 19:59 Labor Evaluation Frequency: 0 Monitor Mode: External Resting Tone [place]: Relaxed Heart Rate FHR Baseline Rate: 120 Monitor Mode: External US FHR Baseline Changes: No Baseline Change Variability: Moderate 6-25 bpm Accelerations: 15X15 Decelerations: None Category: Category I Datetime: 08/31/2018 19:17 Assessment Type: Ongoing Assessment Maternal Assessment Level of Consciousness: Keenly Alert, Responsive DTR's/Clonus: DTRs 2+; No Clonus Headache: Denies Blurred Vision: No Respiratory Effort: Unlabored; Regular Rhythm; Equal Expansion Breath Sounds, Left: Clear and Equal Breath Sounds, Right: Clear and Equal Nausea/Vomiting: Denies RUQ Epigastric Pain: Denies Facial Edema: None Fall Risk Assessment History of Falling: (0) No Secondary Diagnosis: (0) No Ambulatory Aid: (0) Bedrest/Nurse Assist Gait: (0) Normal/Bedrest/Immobile Mental Status: (0) Oriented to Own Ability Datetime: 08/31/2018 19:16 Labor Evaluation Frequency: occasional Monitor Mode: External Quality: Mild Resting Tone [place]: Relaxed Heart Rate FHR Baseline Rate: 130 FHR Baseline Changes: No Baseline Change Variability: Moderate 6-25 bpm Accelerations: 15X15 Decelerations: None Category: Category I Pain Presence: None/Denies Datetime: 08/31/2018 19:00 Stage of : Antepartum Maternal Assessment Level of Consciousness: Keenly Alert, Responsive Labor Evaluation Frequency: 1UC/HR Monitor Mode: External Duration (sec)2399: 50 Quality: Mild Resting Tone [place]: Relaxed Heart Rate FHR Baseline Rate: 135 Monitor Mode: External US Variability: Moderate 6-25 bpm Accelerations: 15X15 Decelerations: None Category: Category I Pain Assessment Pain Scale: 0 Pain Goal: 3 Membrane Status: Intact Vaginal Bleeding: None Datetime: 08/31/2018 18:00 Stage of : Antepartum Maternal Assessment Level of Consciousness: Keenly Alert, Responsive Labor Evaluation Frequency: 3UC/HR Monitor Mode: External Duration (sec)2399: 40-80 Quality: Mild Resting Tone [place]: Relaxed Heart Rate FHR Baseline Rate: 135 Monitor Mode: External US Variability: Moderate 6-25 bpm Accelerations: 15X15 Decelerations: None Category: Category I Pain Assessment Pain Scale: 0 Pain Goal: 3 Membrane Status: Intact Vaginal Bleeding: None Datetime: 08/31/2018 17:00 Stage of : Antepartum Maternal Assessment Level of Consciousness: Keenly Alert, Responsive Labor Evaluation Frequency: 4UC/HR Monitor Mode: External Duration (sec)2399: 40-80 Quality: Mild Resting Tone [place]: Relaxed Heart Rate FHR Baseline Rate: 135 Monitor Mode: External US Variability: Moderate 6-25 bpm Accelerations: 15X15 Decelerations: None Category: Category I Pain Assessment Pain Scale: 0 Pain Goal: 3 Membrane Status: Intact Vaginal Bleeding: None Datetime: 08/31/2018 16:38 Stage of : Antepartum Temperature Route: Oral Datetime: 08/31/2018 16:00 Stage of : Antepartum Maternal Assessment Level of Consciousness: Keenly Alert, Responsive Labor Evaluation Frequency: OCCASIONAL Monitor Mode: External Duration (sec)2399: 30-50 Quality: Mild Resting Tone [place]: Relaxed Heart Rate FHR Baseline Rate: 135 Monitor Mode: External US Variability: Moderate 6-25 bpm Accelerations: 15X15 Decelerations: None Category: Category I Pain Assessment Pain Scale: 0 Pain Goal: 3 Membrane Status: Intact Vaginal Bleeding: None Datetime: 08/31/2018 15:43 Assessment Type: Admission Assessment Vaginal Bleeding: None Maternal Assessment Level of Consciousness: Keenly Alert, Responsive DTR's/Clonus: DTRs 2+; No Clonus Headache: Denies Blurred Vision: No Respiratory Effort: Unlabored; Regular Rhythm; Equal Expansion Breath Sounds, Left: Clear and Equal Breath Sounds, Right: Clear and Equal Nausea/Vomiting: Denies RUQ Epigastric Pain: Denies Lower Extremities Edema: None Degree: None Upper Extremities Edema: None Degree: None Facial Edema: None Fall Risk Assessment History of Falling: (0) No Secondary Diagnosis: (0) No Ambulatory Aid: (0) Bedrest/Nurse Assist IV Therapy: (0) No Gait: (0) Normal/Bedrest/Immobile Mental Status: (0) Oriented to Own Ability Fall Score: 0 Fall Risk Score Definition: No Risk: No action required Labor Evaluation Frequency: x4 Duration (sec)2399: 50-60 Quality: Mild Resting Tone [place]: Relaxed Heart Rate FHR Baseline Rate: 120 Variability: Moderate 6-25 bpm Accelerations: 15X15 Decelerations: None Category: Category I Pain Assessment Pain Scale: 0 Pain Presence: None/Denies Pain Type: N/A Membrane Status: Intact Datetime: 08/31/2018 15:26 Monitor Mode: External Monitor Mode: External US Datetime: 08/31/2018 11:45 Fall Score: 0 Fall Risk Score Definition: No Risk: No action required Datetime: 08/31/2018 11:41 Time of Arrival: 08/31/2018 13:25 EGA: 37.0 Datetime: 08/26/2018 19:50 Fall Score: 0 Fall Risk Score Definition: No Risk: No action required Datetime: 08/26/2018 16:43 EGA: 36.2 Datetime: 08/26/2018 15:00 Fall Score: 0 Fall Risk Score Definition: No Risk: No action required Datetime: 08/26/2018 10:39 Fall Score: 0 Fall Risk Score Definition: No Risk: No action required Datetime: 08/26/2018 10:30 EGA: 36.2 Datetime: 08/24/2018 10:37 EGA: 36.0 Datetime: 08/24/2018 10:25 EGA: 36.0 Datetime: 08/17/2018 12:28 Fall Score: 0 Fall Risk Score Definition: No Risk: No action required Datetime: 08/17/2018 12:26 EGA: 35.0 Datetime: 08/13/2018 14:30 Fall Score: 0 Fall Risk Score Definition: No Risk: No action required Datetime: 08/13/2018 14:29 EGA: 34.3 Datetime: 06/24/2018 14:12 Fall Score: 0 Fall Risk Score Definition: No Risk: No action required Datetime: 06/24/2018 14:11 EGA: 27.2
[2018-09-11] MEDS ORDERED: OXYTOCIN 30 UNITS/LR 500 ML IV SCH ×2 (04:30→16:55)
[2018-09-11] MEDS ORDERED: MIDAZOLAM 1 MG/ML 2 ML INJ ONE (05:05)
[2018-09-11] MEDS ORDERED: FENTAnyl 2MCG/ML-ROPIV 0.2% 100 ML ONE (05:15)
[2018-09-11] MEDS ORDERED: MIDAZOLAM 1 MG/ML 2 ML INJ IV ONE (05:30)
[2018-09-11] MEDS: LACTATED RINGER'S 1,000 ML IV SCH ×3 (05:31→14:13)
--- NOTE | 2018-09-11 07:54 | PREAC ---
Date/Time of Note Date/Time of Note DATE: 09/11/18 TIME: 07:53 Anesthesia Eval and Record Evaluation Time Pre-Procedure Interview DATE: 09/11/18 TIME: 07:53 Age 18 Sex female NPO: Other (na) Preoperative diagnosis labor pain Planned procedure epidural Past Medical History Past Medical History: Includes Psych: Anxiety Surgery & Anesthesia Issues No known issue Meds Anticoagulation: No Beta Morgan within 24 hr: No Reason Beta Morgan not given: Pt. not on B-Morgan Reported Medications [id number] ( 19) 1 Each Tablet, 1 TAB PO DAILY, TAB 06/24/18 Current Medications Lactated Ringer's 1,000 ml @ 125 mls/hr Q8H IV Last administered on 09/11/18at 07:50; Admin Dose 125 MLS/HR; Start 09/10/18 at 20:45 Butorphanol Tartrate (Stadol) 2 mg Q2H PRN IV .PAIN SCALE 6-10 Last administered on 09/11/18at 03:01; Admin Dose 2 MG; Start 09/10/18 at 21:00 Lidocaine (Xylocaine 1% (Mpf)) 30 ml ONCE PRN INJ .EPISIOTOMY; Start 09/10/18 at 21:00 Oxytocin/Lactated Ringer's 500 ml @ 500 mls/hr ONCE POST IV ; Start 09/10/18 at 21:00 Oxytocin/Lactated Ringer's 500 ml @ 125 mls/hr POST IV ; Start 09/10/18 at 21:00 Ibuprofen (Motrin) 600 mg ONCE PRN PO .PAIN 1-5; Start 09/10/18 at 21:00 Lactated Ringer's 1,000 ml @ 2,000 mls/hr Q30M PRN IV .ANESTHESIA Last administered on 09/11/18at 04:33; Admin Dose 2,000 MLS/HR; Start 09/10/18 at 20:45 Oxytocin/Lactated Ringer's 500 ml @ 0 mls/hr ONCE PRN IV .VAGINAL BLEEDING; Start 09/10/18 at 21:00 Methylergonovine Maleate (Methergine) 0.2 mg ONCE PRN IM .VAGINAL BLEEDING; Start 09/10/18 at 21:00 Carboprost Tromethamine (Hemabate) 250 mcg ONCE PRN IM .VAGINAL BLEEDING; Start 09/10/18 at 21:00 Misoprostol (Cytotec) 1,000 mcg ONCE PRN GA .VAGINAL BLEEDING; Start 09/10/18 at 21:00 Mineral Oil (Muri-Lube) 30 ml PRN PRN TOP NOTE; Start 09/10/18 at 21:00 Oxytocin/Lactated Ringer's 500 ml @ 0 mls/hr FOR AUGMENTATION IV ; Start 09/11/18 at 04:30 Meds reviewed: Yes Allergies Coded Allergies: No Known Allergy (Unverified , 08/31/18) Allergies Reviewed: Yes Labs/Studies Labs Reviewed: Reviewed by anesthesiologist Result Diagram: 09/10/18 1700 09/10/18 1700 Laboratory Tests 09/10/18 17:00 test: N/A Pre-procedure Exam Airway: Adequate mouth opening, Adequate thyromental dist Mallampati: Mallampati I Teeth: Normal Lung: Normal Heart: Normal ASA Physical Status ASA physical status: 2 Emergency: None Pre-operative Attestations Prior to commencing anesthesia and surgery, the patient was re-evaluated, there was verification of: *The patient's identity *The results of appropriate recent lab work and preoperative vital signs *The above evaluation not changing prior to induction *Anesthetic plan, risk benefits, alternative and complications discussed with patient/family; questions answered; patient/family understands, accepts and wishes to proceed. ALBA MONTERO DO Sep 11, 2018 07:54
--- NOTE | 2018-09-11 07:55 | PAC ---
Date/Time of Note Date/Time of Note DATE: 09/11/18 TIME: 07:55 Post-Anesthesia Notes Post-Anesthesia Note Activity: WNL Respiratory function: WNL Cardiovascular function: WNL Mental status: Baseline Pain reasonably controlled: Yes Hydration appropriate: Yes Nausea/Vomiting absent: Yes ALBA MONTERO DO Sep 11, 2018 07:55
[2018-09-11] MEDS ORDERED: NALOXONE (0.4 MG/ML) INJ IV PRN (08:00)
[2018-09-11] MEDS: FENTAnyl 2MCG/ML-ROPIV 0.2% 100 ML BAG EPI SCH ×2 (09:21→11:21)
[2018-09-11] MEDS ORDERED: AMPICILLIN 2 GM/NS (PMX) 100 ML IV STA (11:05)
[2018-09-11] MEDS ORDERED: CEFAZOLIN 2 GM/50 ML (PMX) 50 ML IVPB ONE (14:33)
[2018-09-11] MEDS ORDERED: CEFAZOLIN 2 GM/50 ML (PMX) 50 ML IVPB STA (14:36)
[2018-09-11] MEDS ORDERED: AMPICILLIN 1 GM/NS (PMX) 50 ML IV SCH (15:30)
[2018-09-11] MEDS ORDERED: ONDANSETRON 4 MG INJ ONE (15:45)
[2018-09-11] MEDS ORDERED: ONDANSETRON 4 MG INJ IV PRN ×2 (16:00→17:00)
[2018-09-11] MEDS ORDERED: ONDANSETRON 4 MG INJ IV ONE (16:00)
--- NOTE | 2018-09-11 16:52 | LDN ---
Date/Time of Note Date/Time of Note DATE: 09/11/18 TIME: 16:50 Delivery Summary Term gestation Placenta Delivered: Spontaneously Meconium: Thick Episiotomy: Yes Indication for episiotomy heart rate tracing category 2 Laceration repair: Medial episiotomy repaired with 2-0 Vicryl suture in layered fashion Anesthesia type: Epidural Estimated blood loss: 200 Sponge & Needle done & correct: Yes All needle counts correct: Yes Any foreign bodies felt in the: No Delivery Information Sex Infant Sex: female Apgars 1 Minute: 9 5 Minute: 9 Suctioning Nose & mouth suctioned at cody: Yes Delee suction performed: Yes Umbilical Cord Umbilical cord with: 3 Vessels Cord presentations: no nuchal cord Cord Blood was obtained: Yes Mother & Baby Disposition Disposition Baby's weight 6 pounds 5 ounces/ 2850 g Patient received Methergine IM x1 dose and Cytotec 1000 mcg per rectum Copies To: CC: SABIHA MCCARTY MD ; MARYCRUZ ADAMS MD Sep 11, 2018 16:52
[2018-09-11] MEDS ORDERED: MAGNESIUM HYDROXIDE 30ML CUP PO PRN (17:00)
[2018-09-11] MEDS ORDERED: ACETAMINOPHEN 325 MG TAB PO PRN ×2 (17:00)
[2018-09-11] MEDS ORDERED: SENNA/DOCUSATE NA (8.6MG/50MG) TAB PO PRN (17:00)
[2018-09-11] MEDS ORDERED: METHYLERGONOVINE 0.2 MG INJ IM PRN (17:00)
[2018-09-11] MEDS ORDERED: LANOLIN HPA 1 PKT TOP PRN (17:00)
[2018-09-11] MEDS ORDERED: DIBUCAINE 1% 30 GM OINT TOP PRN (17:00)
[2018-09-11] MEDS ORDERED: BENZOCAINE 20% 56 ML SPRAY TOP PRN (17:00)
[2018-09-11] MEDS ORDERED: WITCH HAZEL/GLYCERIN PAD PR PRN (17:00)
[2018-09-11] MEDS ORDERED: OXYTOCIN 30 UNITS/LR 500 ML IV PRN (17:00)
[2018-09-11] MEDS ORDERED: MISOPROSTOL 200 MCG TAB PR PRN (17:00)
[2018-09-11] MEDS ORDERED: CARBOPROST 250 MCG INJ IM PRN (17:00)
[2018-09-11 17:45] VITALS: BP 116/78; PULSE 78; RESP 18
[2018-09-11] MEDS: LACTATED RINGER'S 1,000 ML IV* SCH (18:00)
[2018-09-11 19:50] VITALS: BP 125/68; PULSE 89; RESP 18
[2018-09-12] VITALS: BP 120/62; PULSE 80; RESP 16
[2018-09-12] MEDS: LACTATED RINGER'S 1,000 ML IV* SCH ×3 (00:55→16:55)
[2018-09-12 04:15] VITALS: BP 118/62; PULSE 78; RESP 18
[2018-09-12 08:45] VITALS: BP 112/74; PULSE 77; RESP 16
--- NOTE | 2018-09-12 09:57 | PD.PPDC ---
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
[2018-09-12] MEDS: IBUPROFEN 600 MG TAB PO PRN (10:46)
[2018-09-12 20:00] VITALS: BP 113/67; PULSE 79; RESP 18
[2018-09-13] MEDS: LACTATED RINGER'S 1,000 ML IV* SCH (00:55)
[2018-09-13] MEDS: IBUPROFEN 600 MG TAB PO PRN (03:05)
[2018-09-13 03:06] VITALS: BP 108/62; PULSE 72; RESP 18
[2018-09-13 09:00] VITALS: BP 94/62; PULSE 66; RESP 16
--- NOTE | 2018-09-13 10:30 | NSTRPT ---
NST Information Datetime Report Generated by CPN: 09/13/2018 10:29 Datetime: 09/10/2018 13:46 NST Information EGA: 38.3 Test Number: 3 Time on Monitor: 09/10/2018 14:17 Time off Monitor: 09/10/2018 14:38 NST Duration (Min): 21 Reason for NST: Oligohydramnios Test and Monitor Explained: Monitor Explained; Test Explained; Verbalized Understanding Pulse: 97 Resp: 18 SBP: 127 DBP: 84 Test Evaluation NST Interventions: None Patient States Movement: Present Contraction Frequency: 1-2 FHR Baseline : 115 Variability: Moderate 6-25bpm Accelerations: 15X15 Decelerations: None FHR Category: Category I NST Results: Reactive Comments: PT TO U/S; TOBIAS 12.1; Cephalic notified that patient was told she had elevated liver enzymes and that she may have c holestasis. Advised to send patient to [facility] for evaluation. Electronically Signed By E-Signature: with User ID: [id number] Datetime: 09/07/2018 14:24 NST Information EGA: 38.0 NST Duration (Min): 26 Datetime: 09/03/2018 14:34 NST Information EGA: 37.3 NST Duration (Min): 25
--- NOTE | 2018-09-14 13:09 | DELSUM ---
Delivery Summary A-C Datetime Report Generated by CPN: 09/14/2018 13:09 DELIVERY PERSONNEL District Representative: Megan Tapia MATERNAL INFORMATION Delivery Anesthesia: Epidural Medications in Delivery: OXYTOCIN, 30 UNITS IN 500ML LR; METHERGINE, 0.2MG, IM; CYTOTEC Delivery QBL (ml): 200 Placenta Cultured: No Maternal Complications: Other Other Maternal Complications: POSSIBLE CHOLESTASIS RN Comments: CYTOTEC, 1000MCG, VT 2ND STORK RN: CherylBHARTI LABOR SUMMARY EDC: 09/21/2018 00:00 No. Babies in Womb: 1 Attempted: No Labor Anesthesia: Epidural LABOR INFORMATION Onset of Labor: 09/11/2018 02:58 Complete Dilatation: 09/11/2018 12:47 Cervical Ripening Agents: Cytotec @ 50 Group B Beta Strep: Done, Result Unknown (Annotations: NO HARD COPY OF RESULTS) Antibiotics # of Doses: 2 Antibiotics Time of Last Dose: 09/11/2018 13:48 Steroids Given: None Reason Steroids Not Administered: Not Applicable MEMBRANES Membranes Rupture Method: Spontaneous Rupture of Membranes: 09/11/2018 12:46 Length of Rupture (hr): 1.68 Amniotic Fluid Color: Heavy Meconium Amniotic Fluid Amount: Moderate STAGES OF LABOR Stage 1 hr: 9 Stage 1 min: 49 Stage 2 hr: 1 Stage 2 min: 40 Stage 3 hr: 0 Stage 3 min: 2 Total Time in Labor hr: 11 Total Time in Labor min: 31 VAGINAL DELIVERY Episiotomy: Median Laceration Extension: N/A Laceration Type: None Laceration Repair: Yes Initial Vag Sponge Count: 10 Final Vag Sponge Count: 10 Initial Vag Sharps Count: 1 Final Vag Sharps Count: 4 Sponge Count Correct: Yes; Vaginal Sweep Performed Sharps Count Correct: Yes BABY A INFORMATION Delivery Date/Time: 09/11/2018 14:27 Method of Delivery: Vaginal Born in Route : No : N/A (Annotations: Data stored by [facility] on behalf of user) Forceps: N/A Vacuum Extraction: N/A Shoulder Dystocia : N/A SHOULDER DYSTOCIA BABY A Infant Delivery Date/Time: 09/11/2018 14:27 PRESENTATION/POSITION BABY A Presentation: Cephalic Cephalic Presentation: Vertex Breech Presentation: N/A PLACENTA INFORMATION BABY A Placenta Delivery Time : 09/11/2018 14:29 Placenta Method of Delivery: Expressed Placenta Status: Delivered SCORES BABY A Heart Rate 1 min: >100 bpm Resp Effort 1 min: Good Cry Reflex Irritability 1 min: Cough/Sneeze/Pulls Away Muscle Tone 1 min: Active Motion Color 1 min: Body [place], Extremit Blue Resuscitation Effort 1 min: Tactile Stimulation SCORE 1 MIN: 9 Heart Rate 5 min: >100 bpm Resp Effort 5 min: Good Cry Reflex Irritability 5 min: Cough/Sneeze/Pulls Away Muscle Tone 5 min: Active Motion Color 5 min: Body [place], Extremit Blue Resuscitation Effort 5 min: Tactile Stimulation SCORE 5 MIN: 9 INFANT INFORMATION BABY A Gestational Age at Delivery: 38.4 Gestational Status: Early Term- 37- 38.6 Weeks Infant Outcome : Liveborn, with signs of life Condition : Stable Infant Sex: Female IDENTIFICATION/MEDS BABY A ID Band Number: [id number] ID Band Location: Right Leg; Left Arm Sensor Applied: Yes Sensor Number: [id number] Sensor Location : Cord Clamp Vitamin K Given : Not Given Erythromycin Given: Not Given WEIGHT/LENGTH BABY A Birthweight (gm): 2850 Weight (lb): 6 Infant Weight (oz): 5 Length (in): 19.00 Infant Length (cm): 48.26 CORD INFORMATION BABY A No. Cord Vessels: 3 Nuchal Cord : N/A Cord Blood Taken: Yes Suction: Mouth; Nose ASSESSMENT BABY A Complications: Extended Bradycardi; Multiple Late Decels; Multiple Variable Decels; Mec onium Physical Findings at Delivery: Caput Succedaneum; Molding of the Head; Within Normal Limits Respirations: Appears Normal Stratigrapher/ALS Called : Yes Care By: TAYLOR HOLLINGSWORTH M.A.RIVERA Transferred To: Remains with Mother
--- NOTE | 2018-10-05 17:57 | DS ---
Date/Time of Note Date/Time of Note DATE: 10/05/18 TIME: 17:57 Obstetrical Discharge Record Final Diagnosis Final Diagnosis: Term delivered Vaginal Delivery Obstetrical Delivery: Spontaneous, Laceration, Repaired Complications Other (cholestasis of ) Augmentation: No Induction: Yes Condition on Discharge Physical Assessment Last Vitals: stable Voiding: Yes Bowel Movement: Yes Breast: Soft, non-tender, Filling Fundus: Firm Abdomen and Incision: soft nt Calf Tenderness: No Patient Condition: Fair SABIHA MCCARTY MD Oct 05, 2018 17:57
== END 2018-09-13 12:45 | disposition home or self-care (01) | DRG 807 ==
LOC: OBT 16:27 → L-D 16:27 → OBT 20:45 → L-D 20:45 → PP1 09-11 17:30
PROVIDERS: ADMIT Obstetrics & Gynecology; ATTEND Obstetrics & Gynecology
PROC: 10E0XZZ Delivery of Products of Conception, External Approach (ICD-10-PCS; principal; 2018-09-11)
PROC: 0W8NXZZ Division of Female Perineum, External Approach (ICD-10-PCS; 2018-09-11)
DX: O76 Abnormality in fetal heart rate and rhythm complicating labor and delivery (principal); Z37.0 Single live birth; Z3A.38 38 weeks gestation of pregnancy
CPT/HCPCS: 62322; 76815; 76818; 80053; 82150; 83690; 85025; 85610; 85730; 86592; 87340; 88307; 99464; G0463; J0290; J0595; J0690; J2250; J2405; J2590; J3010; J7120